=== PATIENT | male | born 1960 | race Caucasian/White ===

== ENCOUNTER 2018-12-17 07:27 | Emergency (ER) | payer MEDICAID ==
[~2018-12-17] VITALS: Ht 185.4 cm; Wt 78.0 kg
[2018-12-17] MEDS ORDERED: OXYCODONE HCL/ACETAMINOPHEN 5/325MG TABLET PO ONE (08:15)
[2018-12-17 08:39] VITALS: BP 118/77
== END 2018-12-17 08:53 | disposition home or self-care (01) ==
LOC: ER 07:27
DX: S40.012A Contusion of left shoulder, initial encounter (principal); S80.02XA Contusion of left knee, initial encounter; S80.01XA Contusion of right knee, initial encounter; I51.9 Heart disease, unspecified; Z98.890 Other specified postprocedural states; Z88.6 Allergy status to analgesic agent; W10.9XXA Fall (on) (from) unspecified stairs and steps, initial encounter; Y93.89 Activity, other specified; Y92.89 Other specified places as the place of occurrence of the external cause; Y99.8 Other external cause status
CPT/HCPCS: 99282; 99283